=== PATIENT | female | born 1970 | race Caucasian/White ===

== ENCOUNTER 2023-04-13 11:01 | Outpatient (REF) | payer MEDICAID, SELFPAY ==
[2023-04-13 14:02] LABS: MANUAL DIFF FLAG NO
[2023-04-13 14:08] LABS: White Blood Count 6.2 X10*3/uL (4.8-10.8)
[2023-04-13 14:09] LABS: Basophils Absolute Auto 0.1 X10*3/uL (0.0-0.2); Eosinophils Absolute Auto 0.1 X10*3/uL (0.0-0.4); Eosinophils Percent Auto 1.8 % (0-4); Hematocrit 43.3 % (37.0-47.0); Hemoglobin 13.7 g/dl (12.0-16.0); Imm Gran Abs Auto 0.01 X10*3/uL (0.00-0.03); Imm Gran Pct Auto 0.2 % (0.0-0.4); Lymphocytes Percent Auto 31.3 % (20-40); Mean Corpuscular HGB Conc 31.6 g/dl (31.0-35.0); Mean Corpuscular Hemoglobin 27.2 pg (27.0-33.0); Mean Corpuscular Volume 86.1 fL (80.0-98.0); Mean Platelet Volume 10.3 fL (9.4-12.3); Monocytes Absolute Auto 0.5 X10*3/uL (0.1-1.2); Monocytes Percent Auto 8.5 % (2-11); Neutrophils Absolute Auto 3.6 x10*3/uL (2.0-8.3); Neutrophils Percent Auto 57.2 % (45-73); Platelet Count 326 X10*3/uL (160-400); Red Blood Count 5.03 X10*6/uL (4.20-5.50); Red Cell Distribution Width 13.6 % (11.0-16.0)
[2023-04-13 14:14] LABS: Appearance Urine Clear; Color Urine Yellow; Glucose Urine UA Negative (Negative); Leukocyte Esterase Urine Moderate (2+) (Negative); Nitrite Urine Negative (Negative); PH 5.5 (5.0-9.0); Specific Gravity - Urine 1.015 (1.005-1.025); UMIC TRIGGER UA YES; Urine Blood Negative (Negative); Urine Ketones Negative (Negative); Urine Protein Negative (Neg-Trace)
[2023-04-13 14:17] LABS: Estimated Average Glucose 100 mg/dL; Hemoglobin A1c % 5.1 % (<6.0)
[2023-04-13 14:21] LABS: Bacteria Urine 1+ (None Seen); Hyaline Casts Urine 0-2 /LPF (0-2)
[2023-04-13 16:24] LABS: Alanine Aminotransferase 24 U/L (0-31); Albumin Level 4.1 g/dL (3.5-5.0); Alkaline Phosphatase 95 U/L (39-117); Anion Gap 12 (12-20); Aspartate Amino Transferase 24 U/L (5-31); Bilirubin Direct 0.2 mg/dL (0.0-0.5); Bilirubin Total 0.7 mg/dL (0.0-1.0); Blood Urea Nitrogen 7 mg/dL (9-16); Calcium 9.5 mg/dL (8.4-10.2); Carbon Dioxide 26 mmol/L (22-29); Chloride 104 mmol/L (96-108); Cholesterol 227 mg/dL (<200); Estimated Glomerular Filt Rate > 60; Glucose Fasting 71 mg/dL (60-99); HDL Cholesterol 61 mg/dL (>40); LDL Cholesterol Calculated 144 mg/dL (<100); Potassium 4.3 mmol/L (3.3-5.1); Sodium 138 mmol/L (135-145); Total Protein 8.3 g/dL (6.5-8.0); Triglycerides 114 mg/dL (<150)
[2023-04-13 16:54] LABS: TSH reflex Free T4 1.75 uIU/mL (0.32-4.0); Vitamin D 25-OH Total 10.6 ng/mL (>30)
== END 2023-04-13 11:02 | disposition home or self-care (01) ==
LOC: HO.CHCLDS 11:01
PROVIDERS: Visit Provider Pediatrics
DX: Z12.31 Encounter for screening mammogram for malignant neoplasm of breast (principal); I10 Essential (primary) hypertension
CPT/HCPCS: 36415; 80048; 80061; 80076; 81001; 82306; 83036; 84443; 85025

== ENCOUNTER 2024-02-28 10:16 | Outpatient (REF) | payer MEDICAID, SELFPAY ==
[2024-02-28 14:46] LABS: MANUAL DIFF FLAG NO
[2024-02-28 14:56] LABS: Basophils Absolute Auto 0.1 X10*3/uL (0.0-0.2); Basophils Percent Auto 0.7 % (0-2); Eosinophils Absolute Auto 0.1 X10*3/uL (0.0-0.4); Eosinophils Percent Auto 0.8 % (0-4); Hematocrit 43.1 % (37.0-47.0); Hemoglobin 13.7 g/dl (12.0-16.0); Imm Gran Abs Auto 0.02 X10*3/uL (0.00-0.03); Imm Gran Pct Auto 0.3 % (0.0-0.4); Lymphocytes Absolute Auto 2.1 X10*3/uL (1.2-4.9); Lymphocytes Percent Auto 28.8 % (20-40); Mean Corpuscular HGB Conc 31.8 g/dl (31.0-35.0); Mean Corpuscular Hemoglobin 27.5 pg (27.0-33.0); Mean Corpuscular Volume 86.5 fL (80.0-98.0); Mean Platelet Volume 10.1 fL (9.4-12.3); Monocytes Absolute Auto 0.5 X10*3/uL (0.1-1.2); Monocytes Percent Auto 7.3 % (2-11); Neutrophils Absolute Auto 4.4 x10*3/uL (2.0-8.3); Neutrophils Percent Auto 62.1 % (45-73); Platelet Count 325 X10*3/uL (160-400); Red Blood Count 4.98 X10*6/uL (4.20-5.50); Red Cell Distribution Width 13.6 % (11.0-16.0); White Blood Count 7.1 X10*3/uL (4.8-10.8)
[2024-02-28 15:20] LABS: Alanine Aminotransferase 17 U/L (0-31); Albumin Level 4.1 g/dL (3.5-5.0); Alkaline Phosphatase 127 U/L (39-117); Anion Gap 11 (12-20); Aspartate Amino Transferase 18 U/L (5-31); Bilirubin Direct 0.3 mg/dL (0.0-0.5); Bilirubin Total 0.8 mg/dL (0.0-1.0); Blood Urea Nitrogen 9 mg/dL (9-16); Calcium 9.7 mg/dL (8.4-10.2); Carbon Dioxide 26 mmol/L (22-29); Chloride 106 mmol/L (96-108); Cholesterol 131 mg/dL (<200); Estimated Glomerular Filt Rate > 60; Glucose Fasting 86 mg/dL (60-99); HDL Cholesterol 45 mg/dL (>40); LDL Cholesterol Calculated 72 mg/dL (<100); Sodium 139 mmol/L (135-145); Total Protein 8.1 g/dL (6.5-8.0); Triglycerides 70 mg/dL (<150)
[2024-02-28 15:34] LABS: TSH reflex Free T4 1.76 uIU/mL (0.32-4.0); Vitamin D 25-OH Total 18.9 ng/mL (>30)
== END 2024-02-28 10:17 | disposition home or self-care (01) ==
LOC: HO.CHCLDS 10:16
PROVIDERS: Visit Provider Pediatrics
DX: I10 Essential (primary) hypertension (principal); I25.10 Atherosclerotic heart disease of native coronary artery without angina pectoris
CPT/HCPCS: 36415; 80048; 80061; 80076; 82306; 84443; 85025

== ENCOUNTER 2025-06-17 11:23 | Outpatient (REF) | payer MEDICAID, SELFPAY ==
--- OUTSIDE RECORDS SUMMARY | 2025-06-17 11:15 | XMS_ITS | Encounter Summary ---
Author Organization [employer] Address [address] [place] [address] [address] [place] [address] Care Team Providers Care Front End Manager Name Role Phone Nicolle Grant MD Primary Care Provider [phone] Reason for Referral * Imaging (Routine) - Closed Specialty Diagnoses / Procedures Referred By Contac t Referred To Contact Radiology Diagnoses Breast cancer screening by mammogram Procedures BI Mammogram Screening Tomosynthesis Bilateral Nicolle Grant MD [address] [place] [address] Phone: tel: fax: [facility] Referral ID Status Reason Start Date Expiration Date Visits Re quested Visits Authorized [id number] Closed 06/17/2025 06/17/2026 1 1 Encounter Details Date Type Department Care Team ([facility] st Contact Info) Description 06/17/2025 11:15 AM EDT Office Visit [facility] & PEDS [address] [place] [address] Nicolle Grant MD [address] [place] [address] Screening for colon cancer (Primary Dx); Generalized weakness; Breast cancer screening by mammogram; History of OCD (obsessive compulsive disorder); Primary hypertension Social History Tobacco Use Types Packs/Day Years Used Date Smoking Tobacco: Never Passive Smoke Exposure: Never Smokeless Tobacco: Never Alcohol Use Standard Drinks/Week Comments Never 0 (1 standard drink = 0.6 oz pur e alcohol) Alcohol Answer Date Recorded Frequency of Alcohol Consumption Not on file 05/17/2023 Average Number of Drinks Not on file 023 Frequency of Binge Drinking Not on file 04/21 Score 0 05/17/2023 Depression Answer Date Recorded Patient Health Questionnaire-9 Score 19 04/12/2023 Housing Stability Answer Date Recorded What is your housing situation today? I have nikhil yung 06/13/[address] you li ve. Do you have problems with any of the following? None of the above 06/13/2023 Food Insecurity Answer Date Recorded Within the past 12 months, y ou worried that your food would run out before you got money to buy more: Never True 06/13/2023 Within the past 12 months,th e food you bought just didn't last and you didn't have enough money to get more: Never True Transportation Answer Date Recorded In the past 12 months, has l ack of transportation kept you from medical appts, meetings, work or from getting things needed for daily living? No 06/13/2023 Utilities Answer Date Recorded In the past 12 months, has t he electric, gas, oil or water company threatened to shut off services in your home? No 06/13/2023 Depression Answer Date Recorded Patient Health Questionnaire-2 Score 0 05/17/2023 Comments Unknown Sex and Gender Information Value Date Recorded Sex Assigned at Female 01/22/2023 1:40 PM EDT Legal Sex Female 1:39 PM EDT Gender Identity Female 01/22/2023 1:40 PM EDT Sexual Orientation Straight 04/12/2023 2: 16 PM EDT documented as of this encounter Last Filed Vital Signs Vital Sign Reading Time Taken Comments Blood Pressure 136/90 06/17/2025 10:59 AM EDT Pulse 68 06/17/2025 10:59 AM EDT Temperature 36.6 C (97.9 F) 06/17/2025 10:59 AM EDT Respiratory Rate 20 06/17/2025 10:59 AM EDT Oxygen Saturation - - Inhaled Oxygen Concentration - - Weight 76.2 kg (168 lb) 06/17/2025 10:59 AM EDT Height - - Body Mass Index 32.03 05/01/2024 10:37 AM EDT documented in this encounter Progress Notes * Nicolle Grant MD - 06/17/2025 11:15 AM EDT Subjective Patient ID: Marlyn Alcantar is a 55 y.o. female who presents for multiple complaints. Marlyn is a 55 y/o female patient of mine here for c/o chronic fatigue.Had labs done 02/2024 whih werenormal except fr low Vit D.States sleeps a lot and still feels tired,denies snoring or headaches.Has severe anxiety and OCD tendencies.Was seeing Nikita ( beh therapist at [facility]) , not seeing him any mo re.Admits never started taking venlafaxine 37.5 Mg prescribed to her for this matter. Fatigue This is a new problem. The current episode started more than 1 month ago. The problem occurs constantly. The problem has been unchanged. Associated symptoms include fatigue and weakness. Pertinent negatives include no anorexia, congestion, coughing, fever, headaches, myalgias, numbness, sore throat, urinary symptoms, vertigo or visual change. Nothing aggravates the symptoms. She has tried rest for the symptoms. The treatment provided no relief. Review of Systems Constitutional: Positive for fatigue. Negative for fever. HENT: Negative for congestion and sore throat. Respiratory: Negative for cough. Gastrointestinal: Negative for anorexia. Musculoskeletal: Negative for myalgias. Neurological: Positive for weakness. Negative for vertigo, seizures, numbness and headaches. Psychiatric/Behavioral: Positive for behavioral problems and decreased concentration. Negative for sleep disturbance and suicidal ideas. The patient is nervous/anxious. Objective Vitals: 06/17/25 1059 BP: (!) 136/90 BP Location: Left arm Patient Position: Sitting BP Cuff Size: Adult Pulse: 68 Resp: 20 Temp: 97.9 ??F (36.6 ??C) TempSrc: Oral Weight: 168 lb (76.2 kg) Physical Exam Constitutional: General: She is not in acute distress. Appearance: Normal appearance. She is not ill-appearing. HENT: Head: Normocephalic. Right Ear: Tympanic membrane and ear canal normal. Left Ear: Tympanic membrane and ear canal normal. Nose: Nose normal. Mouth/Throat: Mouth: Mucous membranes are moist. Pharynx: No oropharyngeal exudate or posterior oropharyngeal erythema. Eyes: Extraocular Movements: Extraocular movements intact. Conjunctiva/sclera: Conjunctivae normal. Pupils: Pupils are equal, round, and reactive to light. Cardiovascular: Rate and Rhythm: Normal rate and regular rhythm. Pulses: Normal pulses. Heart sounds: Normal heart sounds. Pulmonary: Effort: Pulmonary effort is normal. No respiratory distress. Breath sounds: Normal breath sounds. Abdominal: Palpations: Abdomen is soft. Musculoskeletal: General: Normal range of motion. Cervical back: Normal range of motion. Right lower leg: No edema. Left lower leg: No edema. Skin: General: Skin is warm. Capillary Refill: Capillary refill takes less than 2 seconds. Comments: Peeling of skin of fingertips due to patient constantly taking skin off Neurological: General: No focal deficit present. Mental Status: She is alert and oriented to person, place, and time. Psychiatric: Attention and Perception: She does not perceive auditory or visual hallucinations. Mood and Affect: Mood is anxious. Speech: Speech normal. Behavior: Behavior normal. Behavior is not aggressive or withdrawn. Behavior is cooperative. Thought Content: Thought content normal. Cognition and Memory: Cognition normal. Judgment: Judgment normal. Assessment/Plan Diagnoses and all orders for this visit: Screening for colon cancer Comments: Agrees to do cologuard. Declines colonoscopy referral. Orders: - Basic Metabolic Panel, Fasting; Future - CBC auto differential; Future - Cologuard?? colon cancer screening - TSH W/Reflex to FT4; Future - Vitamin D, 25-Hydroxy, Total, Immunoassay; Future - Vitamin B12/Folate, Serum Panel; Future - Hepatic Function Panel; Future - Urinalysis with reflex microscopic; Future Generalized weakness Comments: Has Severe untreated anxiety.Check labs today, eat properly,hydrate properly.F/U with me x results given. Orders: - Basic Metabolic Panel, Fasting; Future - CBC auto differential; Future - Cologuard?? colon cancer screening - TSH W/Reflex to FT4; Future - Vitamin D, 25-Hydroxy, Total, Immunoassay; Future - Vitamin B12/Folate, Serum Panel; Future - Hepatic Function Panel; Future - Urinalysis with reflex microscopic; Future Breast cancer screening by mammogram Comments: Overdue,new order sent,importance discussed. Orders: - BI Mammogram Screening Tomosynthesis Bilateral; Future History of OCD (obsessive compulsive disorder) Comments: Start venlafaxine as previously prescribed,close f/u with me given.Referred to outpatient [facility] in 03/2025. Primary hypertension Comments: BP stable on current meds,hasnt taken meds yet this am,advised to take them rosa.Reassess next visit. Other orders - venlafaxine XR (Effexor XR) 37.5 MG 24 hr capsule; Take 1 capsule (37.5 mg) by mouth Once per day. Future Appointments Date Time Provider Department Center 06/17/2025 11:15 AM Nicolle Grant MD [facility] This note was drafted using Ambient (AI) technology. The patient/patient's guardian has been informed and has consented to the use of this technology: Yes documented in this encounter Plan of Treatment Upcoming Encounters Date Type Department Care Team ([facility] st Contact Info) Description 07/22/2025 10:15 AM EST Office Visit [facility] MED & PEDS [address] [place] [address] Nicolle Grant MD [address] [place] [address] Pending Results Name Type Priority Associated Diagnoses Date /Time Basic Metabolic Panel, Fasting Lab Routine Screening for colon cancer Generalized weakness 06/17/2025 11:25 AM EDT Hepatic Function Panel Lab Routine Screening for colon cancer Generalized weakness 06/17/2025 11:25 AM EDT Scheduled Orders Name Type Priority Associated Diagnoses Orde r Schedule Cologuard colon cancer screening Lab Routine Screening for colon cancer Generalized weakness Ordered: 06/17/2025 TSH W/Reflex to FT4 Lab Routine Screening for colon cancer Generalized weakness Expected: 06/17/2025 (Approximate), Expires: 06/17/2026 Vitamin D, 25-Hydroxy, Total, Immunoassay Lab Routine Screening for colon cancer Generalized weakness Expected: 06/17/2025 (Approximate), Expires: 06/17/2026 Vitamin B12/Folate, Serum Panel Lab Routine Screening for colon cancer Generalized weakness Expected: 06/17/2025, Expires: 06/17/2026 Urinalysis with reflex microscopic Lab Routine Screening for colon cancer Generalized weakness Expected: 06/17/2025, Expires: 06/17/2026 BI Mammogram Screening Tomosynthesis Bilateral Imaging Routine Breast cancer screening by mammogram Expected: 06/17/2025, Expires: 08/17/2026 documented as of this encounter Procedures Procedure Name Priority Date/Time Associated Diagnosis Comments BASIC METABOLIC PANEL, FASTING Routine 06/17/2025 11:25 AM EDT Screening for colon cancer Generalized weakness CBC WITH AUTO DIFFERENTIAL Routine 06/17/2025 11:25 AM EDT Screening for colon cancer Generalized weakness HEPATIC FUNCTION PANEL Routine 06/17/2025 11:25 AM EDT Screening for colon cancer Generalized weakness documented in this encounter Results * CBC auto differential (06/17/2025 11:25 AM EDT) White Blood Count 6.4 4.8 - 10.8 X10*3/uL [facility] Red Blood Count 4.85 4.20 - 5.50 X10*6/uL [facility] Hemoglobin 13.4 12.0 - 16.0 g/dl [facility] Hematocrit 42.5 37.0 - 47.0 % [facility] Mean Corpuscular Volume 87.6 80.0 - 98.0 fL [facility] Mean Corpuscular Hemoglobin 27.6 27.0 - 33.0 pg [facility] Mean Corpuscular HGB Conc 31.5 31.0 - 35.0 g/dl [facility] Red Cell Distribution Width 13.9 11.0 - 16.0 % [facility] Platelet Count 330 160 - 400 X10*3/uL [facility] Mean Platelet Volume 10.1 9.4 - 12.3 fL [facility] Neutrophils Percent Auto 62.0 45 - 73 % [facility] Imm Gran Pct Auto 0.2 0.0 - 0.4 % [facility] Lymphocytes Percent Auto 27.0 20 - 40 % [facility] Monocytes Percent Auto 9.1 2 - 11 % [facility] Eosinophils Percent Auto 0.9 0 - 4 % [facility] Basophils Percent Auto 0.8 0 - 2 % [facility] NRBC Pct Auto 0.0 0.0 - 0.2 /100WBC [facility] Neutrophils Absolute Auto 4.0 2.0 - 8.3 x10*3/uL [facility] Imm Gran Abs Auto 0.01 0.00 - 0.03 X10*3/uL [facility] Lymphocytes Absolute Auto 1.7 1.2 - 4.9 X10*3/uL [facility] Monocytes Absolute Auto 0.6 0.1 - 1.2 X10*3/uL [facility] Eosinophils Absolute Auto 0.1 0.0 - 0.4 X10*3/uL [facility] Basophils Absolute Auto 0.1 0.0 - 0.2 X10*3/uL [facility] NRBC Abs Auto 0.000 0.0 - 0.012 X10*3/uL [facility] Blood Venous blood specimen / Unknown 06/17/2025 11:25 AM EDT 06/17/2025 1:55 PM EDT us Nicolle Grant MD LAB BLOOD ORDERABLES Final Re sult [facility] [address] [place] [address] [phone] documented in this encounter Visit Diagnoses Diagnosis Screening for colon cancer- Primary Special screening for malignant neoplasms, colon Generalized weakness Breast cancer screening by mammogram History of OCD (obsessive compulsive disorder) Primary hypertension Unspecified essential hypertension documented in this encounter Additional Health Concerns Assessment Noted Time PHQ-9 Depression Total Score: 19 023 10:12 AM EDT documented as of this encounter Care Teams Front End Manager Relationship Specialty Start Date End Date Nicolle Grant MD [address] [place] [id number] PCP - General Internal Medicine 04/12/23 documented as of this encounter
[2025-06-17 14:06] LABS: MANUAL DIFF FLAG NO
[2025-06-17 14:08] LABS: Hematocrit 42.5 % (37.0-47.0); Hemoglobin 13.4 g/dl (12.0-16.0); Imm Gran Abs Auto 0.01 X10*3/uL (0.00-0.03); Imm Gran Pct Auto 0.2 % (0.0-0.4); Lymphocytes Absolute Auto 1.7 X10*3/uL (1.2-4.9); Mean Corpuscular HGB Conc 31.5 g/dl (31.0-35.0); Mean Corpuscular Hemoglobin 27.6 pg (27.0-33.0); Mean Corpuscular Volume 87.6 fL (80.0-98.0); NRBC Abs Auto 0.000 X10*3/uL (0.0-0.012); NRBC Pct Auto 0.0 /100WBC (0.0-0.2); Platelet Count 330 X10*3/uL (160-400); Red Blood Count 4.85 X10*6/uL (4.20-5.50); White Blood Count 6.4 X10*3/uL (4.8-10.8)
[2025-06-17 14:09] LABS: Appearance Urine Clear; Glucose Urine UA Negative (Negative); PH 5.5 (5.0-9.0); Specific Gravity - Urine 1.025 (1.005-1.025); UMIC TRIGGER UACC YES
[2025-06-17 14:12] LABS: UACC Culture Trigger YES
[2025-06-17 14:29] LABS: Alanine Aminotransferase 27 U/L (0-31); Albumin Level 4.4 g/dL (3.5-5.0); Alkaline Phosphatase 107 U/L (39-117); Anion Gap 11 (12-20); Aspartate Amino Transferase 32 U/L (5-31); Blood Urea Nitrogen 8 mg/dL (9-16); Calcium 9.3 mg/dL (8.4-10.2); Carbon Dioxide 27 mmol/L (22-29); Chloride 105 mmol/L (96-108); Estimated Glomerular Filt Rate > 60; Potassium 4.1 mmol/L (3.3-5.1); Sodium 139 mmol/L (135-145); Total Protein 8.1 g/dL (6.5-8.0)
--- OUTSIDE RECORDS SUMMARY | 2025-06-17 14:38 | XMS_ITS | Encounter Summary ---
Author Organization [employer] Address [address] [place] [address] [address] [address] Care Team Providers Care Nuclear Operations Specialist Name Role Phone Nicolle Grant MD Primary Care Provider [phone] Reason for Visit * Reason Onset Date Comments Referral 04/30/2023 Data Operations Director Encounter Details Date Type Department Care Team ([facility] st Contact Info) Description 04/30/[address] [facility] MED & PEDS [address] [place], [place] [phone] Nicolle Grant MD [address] [place] [address] Referral (Data Operations Director ) Social History Tobacco Use Types Packs/Day Years Used Date Smoking Tobacco: Never Passive Smoke Exposure: Never Smokeless Tobacco: Never Alcohol Use Standard Drinks/Week Comments Never 0 (1 standard drink = 0.6 oz pur e alcohol) Depression Answer Date Recorded Patient Health Questionnaire-9 Score 19 04/12/2023 Comments Unknown Sex and Gender Information Value Date Recorded Sex Assigned at Female 01/22/2023 1:40 PM EDT Legal Sex Female 1:39 PM EDT Gender Identity Female 01/22/2023 1:40 PM EDT Sexual Orientation Straight 04/12/2023 2: 16 PM EDT documented as of this encounter Miscellaneous Notes * Telephone Encounter - Davi Lamas - 05/07/2023 9:26 AM EDT Tc from pt requesting status on referral. * Telephone Encounter - Nava Mcdaniel - 04/30/2023 11:45 AM EDT Tc from patient requesting a referral for a magneto repairer instead of a longwall shearer operator. documented in this encounter Plan of Treatment Upcoming Encounters Date Type Department Care Team ([facility] st Contact Info) Description 07/22/2025 10:15 AM EST Office Visit [facility] MED & PEDS [address] [place] [address] Nicolle Grant MD [address] [place] [address] documented as of this encounter Visit Diagnoses Not on filedocumented in this encounter Additional Health Concerns Assessment Noted Time PHQ-9 Depression Total Score: 19 023 10:12 AM EDT documented as of this encounter Care Teams Nuclear Operations Specialist Relationship Specialty Start Date End Date Nicolle Grant MD [address] [place] [address] PCP - General Internal Medicine 04/12/23 documented as of this encounter
--- OUTSIDE RECORDS SUMMARY | 2025-06-17 14:38 | XMS_ITS | Encounter Summary ---
Author Organization [employer] Address [address] [place] [address] [address] [place] [address] Care Team Providers Care Teradata Developer Name Role Phone Nicolle Grant MD Primary Care Provider [phone] Reason for Visit * Reason Onset Date Comments Appointment Request 01/21/2024 Encounter Details Date Type Department Care Team ([facility] Contact Info) Description 01/21/2024 Telephone [facility] MED & PEDS [address] [place], [place] [phone] Nicolle Grant MD [address] [place] [address] Appointment Request Social History Tobacco Use Types Packs/Day Years [...] your housing situation today? I have nikhil barragan 06/13/[address] you li [...] encounter Miscellaneous Notes * Telephone Encounter - Patricia Victoria - 01/21/2024 11:34 AM EDT Tc from pt requesting an appointment with PCP. States was advised by Zesty to follow up with provider today for heart condition. Wood Heel Cementer advised pt provider is booked. Wood Heel Cementer scheduled pt for 02/27 at 9 AM but pt would like a sooner appointment. Pt is currently asymptomatic. Please contact pt at [phone] documented in this encounter Plan of Treatment Upcoming Encounters Date Type Department Care Team ([facility] st Contact Info) Description 07/22/2025 10:15 AM EST Office Visit [facility] MED & PEDS [address] [place] [address] Nicolle Grant MD [address] [place] [address] documented as of this encounter Visit Diagnoses Not on filedocumented in this encounter Additional Health Concerns Assessment Noted Time PHQ-9 Depression Total Score: 19 023 10:12 AM EDT documented as of this encounter Care Teams Teradata Developer Relationship Specialty Start Date End Date Nicolle Grant MD [address] [place] [id number] PCP - General Internal Medicine 04/12/23 documented as of this encounter
--- OUTSIDE RECORDS SUMMARY | 2025-06-17 14:38 | XMS_ITS | Encounter Summary ---
Author Organization [employer] Address [address] [place] [id number] Care Team Providers Care Cooker Pie Filling Name Role Phone Nicolle Grant MD Primary Care Provider [phone] Encounter Details Date Type Department Care Team ([facility] Contact Info) Description 05/07/2023 Orders Only [facility] MED & PEDS [address] [place] [address] Nicolle Grant MD [address] [place] [address] Primary hypertension (Primary Dx) Social History Tobacco Use Types Packs/Day Years [...] PM EDT documented as of this encounter Plan of Treatment Upcoming Encounters Date Type Department Care Team ([facility] Contact Info) Description 07/22/2025 10:15 AM EST Office Visit [facility] MED [facility] PED[facility] [address] [place] [address] Nicolle Grant MD [address] [place] [address] documented as of this encounter Visit Diagnoses Diagnosis Primary hypertension- Primary Unspecified essential hypertension documented in this encounter Additional Health Concerns Assessment Noted Time PHQ-9 Depression Total Score: 19 023 10:12 AM EDT documented as of this encounter Care Teams Cooker Pie Filling Relationship Specialty Start Date End Date Nicolle Grant MD [address] [place] [address] PCP - General Internal Medicine 04/12/23 documented as of this encounter
--- OUTSIDE RECORDS SUMMARY | 2025-06-17 14:38 | XMS_ITS | Data Portability ---
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 Low sodium diet and weight loss were discussed. F/u as scheduled in January with BP log. . [id number] MALU Martinez Main Office [address] [place] [address] 02/08/2017 15:13:35 02/08/2017 15:59:32 Essential hypertension 17823133 I10 DAHS diet, decrease sodium adn caffeine intake, will prescribe just lisinopril as she is feeling weakness and dizziness when taking med, she will take med at night, hydrate, eat well balanced meals, diet and exercise discussed. F/U in 1 month for recheck. Hyperlipidemia 35348942 E78.5 [id number] MALU Martinez Main Office [address] [place] [address] 04/03/2017 09:16:28 04/03/2017 11:07:42 Adult health examination 945618222 Z00.00 Pap done today, she will call for mammo, declined flu/ TDAP vaccines Gynecologi c examination 20985191 Z01.411 Pap and breast exam done, she will call to schedule mammo Immunization refused [id number] Z28.21 Screening for malignant neoplasm of breast 989479488 Z12.39 Exposure t o sexually transmissible disorder 434585601 Z11.3 Anemia 636959435 D64.9 due to have iron testing and will repeat CBC Essential hypertension 18326510 I10 Stopped lisinopril 2 weeks after starting it, feels good, BP normal today, stay off med. 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 She has not been taking it and wonders whether she could get iron infusions. She may not be a candidate for this but will recheck labs. Encouraged patient to practice swallowing pills or bring the liquid back to the pharmacy to have it flavored. Essential hypertension 38153077 I10 She is taking lisinopril as needed when her BP is high. I explained top her that is not appropriat e and it could put her at increased risk for stroke or heart attack to let her BP get so high. She should be taking lisinopril daily 5mg to start and she may add 5mg on days she finds her BP is still high. reviewed dietary changes, cutting back on soda which she drinks multiple times per day, etc. She states is not a diet type person . [id number] MALU Martinez Main Office [address] [facility] [address] [place] [address] 05/23/2018 08:48:17 05/23/2018 10:04:26 Needs influenza immunization 939953081 Z23 Acute non- ST segment elevation myocardial infarction 375054793 I21.4 Follow up with cardiology on 06/04/18 at [facility] 3300.. EF 35% based on echo in hospital. Pure hypercholesterolemia 924061240 E78.00 patient is on lipitor 80mg. she is having difficulty swallowing the pill. Is cutting into 4 pieces but cannot stomach it and states she still has a hard time swallowing it. Will rx 2-40mg pills and do PA if needed. she may need to discuss changing med with cardiology .. Essential hypertension 37258237 I10 Patient is now taking lisinopril and metoprolol , trying to eat better, will be doing cardiac rehab. History of cardiac catheterization [id number] 9100 Z98.890 s/p cardiac cath 05/17 with stent placed to LAD. [id number] Eliceo Alvraez MD Main Office [address] [facility] [address] [place] [address] 11/21/2018 10:13:28 11/21/2018 11:00:45 Essential hypertension 00297694 I10 followed by cardiology Acute non- ST segment elevation myocardial infarction 060835603 I21.4 followed by cardiology . Cough 00915057 R05 will check XR as sx x 2 months. Upper resp iratory infection 34982681 J06.9 sx x 2 months will tx for possible secondary bacterial infection with zpak, hydration, rest. [id number] Moshe Brady MD Main Office [address] [facility] [address] [facility] [place] [address] 09/25/2019 12:43:52 09/25/2019 13:32:04 Cellulitis 099728276 L03.90 warm compresses , recheck 2 week, likely superficia l infected cyst/pimpl e. Will need routine mammogram to be done when this heals, pt agrees. [id number] Eliceo Alvarez MD Main Office [address] [place] [address] [address] [facility] [place] [address] 10/16/2019 10:12:32 10/16/2019 11:12:31 Cellulitis of breast 86718520 N61.0 Lump still present however no evidence of active infection. continue nromal hygeine routines and schedule mammo as she is overdue. Screening for malignant neoplasm of breast 699240243 Z12.39 [id number] Eliceo Alvarez MD [address] [facility] [place] [address] 10/06/2021 10:15:03 10/06/2021 16:23:06 Coronary arteriosclerosis 87994965 I25.10 Had a NSTEMI in 2018 with a cath and a stent placement. Last seen by cardiology 2 years ago. History of non-ST segment elevation myocardial infarction 534474540 I25.2 in 2018 with a stent placement Fatigue 36641321 R53.83 No clear etiology for this. I doubt if this is coming from her heart disease. Possibly from anxiety/de pression but she denies that this is a problem. She is looking for a note to welfare saying that she is unable to work because of heart disease. I will send a message to her cardiologi to get his opinion. [id number] Rob Mann MD [facility] [address] [address] 06/23/2022 09:56:30 06/26/2022 11:21:45 COVID-19 [id number] U07.1 Health Concerns Section Related Observation LastModified by Organization Detai ls LastModified Time None Recorded Concern Status LastModified by Organization Details LastModified Time None Recorded Advance Directives Directive N: declines Payers Insurance Date Sequence Insurance Name Policy Number Policy Pham Covered Member ID Pham Member ID Guarantor Name 11/20/2016 [employer] Jez Nicholsez 06/23/2022 1 [place] [facility] Marlyn Pooletanez [id number] Marlyn Pimentel Ortiz Notes Date Note Type Note Provider Name and Address Organization Details Recorded Time 11/21/2018 text/html Generic HPI TemplateReported by Patientpresents with c/o flu like sx 2 months ago and has had a cough x 2 months, never got better. cough is dry and comes in fits and sometimes she spits up water/ feels like she will throw up. No nasal discharge, no fever, no throat or ear pain. She is s/p ME in may, she saw cardiology in august and was told he heard water in her lungs, she would like to be checked. MALU Martinez [facility] [address], [place], [address], [facility] 11/21/2018 11:29:02 09/25/2019 text/html Pt here for evaluation of lump/pimple on the left breast noted a few days ago. Now more red and sore Ca suggs, [facility] 09/26/2019 00:30:10 10/16/2019 text/html Generic HPI TemplateReported by PatientPt here for evaluation of lump/pimple on the left breast noted a few days ago. Now more red and sore Presents for f/u breast cellulitis, took keflex x 7 days, now has brown discoloration where the redness was. Still has the lump and not much has changed. no pain, no discharge. MALU Martinez [address] [address], [place], [address], [facility] 10/16/2019 15:17:37 10/06/2021 text/html ROS as noted in the HPI Since her ME in 2018 she is now feeling weak all the time and has to lay down because she feels like she is going to pass out. Denies and episodes of syncope. Feels anxiety and stress when goes shopping and often times when she goes out to other activities. She does not feel like she is depressed or anxious and does not want treatment for this. She has been receiving welfare since her son was an because she had to care for him multimedia instructional designer since he had multiple medical problems. Now that he is 18 she no longer qualifies for welfare and is now looking to receive it based on her chronic fatigue. She has not seen cardiology for more than 2 years. She had an ECHO done then which was normal. She has a f/u with Dr Larson on 10/11/21. Eliceo Alvarez MD [address] [address], [place], [address], [facility] 10/06/2021 14:41:09 06/23/2022 text/html ROS as noted in the HPI TH visit during COVID-19 pandemic. Notes symptoms for 1d of facial pain, nausea, headaches, nasal congestion. Tactile temp, shaking chills. No cough, SOB. Notes some mild diarrhea. Had neg COVID test yesterday before symptoms got worse. Notes that son tested positive yesterday. Notes some improvement in headaches with Tylenol. Risk factors include CAD, HTN, obesity. Rob Mann MD [address] [address], [place], [address], [facility] 06/25/2022 18:08:33 OBGyn Episode No OBEpisode recorded.
--- OUTSIDE RECORDS SUMMARY | 2025-06-17 14:38 | XMS_ITS | Clinical Summary ---
Author Organization [facility] ity Address [address] [place] [address] Care Team Providers Care Oil Burner Mechanic Name Role Phone Unavailable Primary Care Provider Unavailabl e Social History Tobacco Use Types Packs/Day Years Used Date Smoking Tobacco: Never Assessed Comments Unknown Sex and Gender Information Value Date Recorded Sex Assigned at Not on file Legal Sex Female 5:12 PM EST Gender Identity Not on file Sexual Orientation Not on file Plan of Treatment Health Maintenance Due Date Last Done Comments Breast Cancer Screening 1969 DTaP,Tdap,and Td Vaccines (1 - Tdap) 1988 Hepatitis B Vaccines (1 of 3 - 19+ 3-dose series) 1988 Cervical Cancer Screening: P ap Smear 1990 Pneumococcal Vaccine: 50+ Ye ars (1 of 1 - PCV) 2019 Zoster Vaccines (1 of 2) 2019 Depression Screening 08/20/2024 COVID-19 Vaccine ( - 2023-2 5 season) 2025 Influenza Vaccine (#1) 2025 RSV Immunization Adult Patie nts (1 - 1-dose 75+ series) 2044 HIB Vaccines Aged Out No longer eligi ble based on patient's age to complete this topic HPV Vaccines Aged Out No longer eligi ble based on patient's age to complete this topic Hepatitis A Vaccines Aged Out No long er eligible based on patient's age to complete this topic IPV Vaccines Aged Out No longer eligi ble based on patient's age to complete this topic MMR Vaccines Aged Out No longer eligi ble based on patient's age to complete this topic Meningococcal ACWY Vaccine Aged Out N o longer eligible based on patient's age to complete this topic Meningococcal B Vaccine Aged Out No l onger eligible based on patient's age to complete this topic RSV Immunization Patients Un johana 20 months Aged Out No longer eligible b ased on patient's age to complete this topic Varicella Vaccines Aged Out No longer eligible based on patient's age to complete this topic
--- OUTSIDE RECORDS SUMMARY | 2025-06-17 14:38 | XMS_ITS | Encounter Summary ---
Author Organization [employer] Address [address] [facility] 7 [place] [address] Care Team Providers Care Hardware Engineering Manager Name Role Phone Nicolle Grant MD Primary Care Provider [phone] Reason for Visit * Reason Onset Date Comments Call Back Request 03/27/2024 Encounter Details Date Type Department Care Team ([facility] Contact Info) Description 03/27/2024 Telephone [facility] [address] [place] [address] Nicolle Grant MD [address] [place] [address] Call Back Request Social History Tobacco Use Types Packs/Day [...] encounter Miscellaneous Notes * Telephone Encounter - Agustín Arnold - 03/27/2024 2:08 PM EDT Tc from patient requesting a call back states has some questions to ask no further information provided documented in this encounter Plan of Treatment Upcoming Encounters Date Type Department Care Team ([facility] st Contact Info) Description 07/22/2025 10:15 AM EST Office Visit [facility] [address] [place] [address] Nicolle Grant MD [address] [place] [address] documented as of this encounter Visit Diagnoses Not on filedocumented in this encounter Additional Health Concerns Assessment Noted Time PHQ-9 Depression Total Score: 19 023 10:12 AM EDT documented as of this encounter Care Teams Hardware Engineering Manager Relationship Specialty Start Date End Date Nicolle Grant MD [address] [place] [address] PCP - General Internal Medicine 04/12/23 documented as of this encounter
--- OUTSIDE RECORDS SUMMARY | 2025-06-17 14:39 | XMS_ITS | Encounter Summary ---
Author Organization [employer] Address [address] [facility] 7 [place] [address] Care Team Providers Care Director Packaging Name Role Phone Nicolle Grant MD Primary Care Provider [phone] Encounter Details Date Type Department Care Team ([facility] Contact Info) Description 06/17/2025 Orders Only [facility] [address] [place], [place] [id number] Nicolle Grant MD [address] [place] [address] Social History Tobacco Use Types Packs/Day Years [...] Upcoming Encounters Date Type Department Care Team ([facility] st Contact Info) Description 07/22/2025 10:15 AM EST Office Visit [facility] [address] [place] [address] Nicolle Grant MD [address] [place] [address] documented as of this encounter Procedures Procedure Name Priority Date/Time Associated Diagnosis Comments URINALYSIS, COMPLETE, WITH REFLEX TO CULTURE Routine 06/17/2025 11:30 AM EDT documented in this encounter Results * (ABNORMAL) Urinalysis, Complete, with Reflex to Culture (06/17/2025 11:30 AM EDT) Color Urine Dark Yellow [facility] Appearance Urine Clear [facility] PH 5.5 5.0 - 9.0 [facility] Glucose Urine UA Negative Negative mg/dL [facility] Urine Blood Negative Negative [facility] Specific [place] - Urine 1.025 1.005 - 1.025 [facility] Urine Protein Trace Neg-Trace mg/dL [facility] Urine Ketones Trace Negative mg/dL [facility] Nitrite Urine Negative Negative [facility] Leukocyte Esterase Urine Moderate (2+)(A) Negative [facility] RBC Urine 0-2 0 - 2 /HPF [facility] Urine WBC 21-50(A) 0 - 5 /HPF [facility] Urine Squamous Epithelial Cell 6-10 0 - 2 /HPF [facility] Urine Bacteria 1+ None Seen [facility] Hyaline Casts, Urine 0-2 0 - 2 /LPF [facility] 06/17/2025 11:3 0 AM EDT 06/17/2025 1:57 PM EDT Narrative [facility] - 06/17/2025 2:14 PM EDT [id number], Clean Catch us Nicolle Grant MD LAB URINE ORDERABLES Final Re sult [facility] [address] [place] [address] [phone] documented in this encounter Visit Diagnoses Not on filedocumented in this encounter Additional Health Concerns Assessment Noted Time PHQ-9 Depression Total Score: 19 023 10:12 AM EDT documented as of this encounter Care Teams Director Packaging Relationship Specialty Start Date End Date Nicolle Grant MD [address] [place] [address] PCP - General Internal Medicine 04/12/23 documented as of this encounter
--- OUTSIDE RECORDS SUMMARY | 2025-06-17 14:39 | XMS_ITS | Encounter Summary ---
Author Organization [employer] Address [address] [facility] 7 [place] [address] Care Team Providers Care Risk Engineer Name Role Phone Nicolle Grant MD Primary Care Provider [phone] Encounter Details Date Type Department Care Team (Latest Contact Info) Description 06/17/2025 Travel Social History Tobacco Use Types Packs/Day Years [...] Upcoming Encounters Date Type Department Care Team (Late st Contact Info) Description 07/22/2025 10:15 AM EST Office Visit [facility] [address] [place] [address] Nicolle Grant MD [address] [place] [address] documented as of this encounter Visit Diagnoses Not on filedocumented in this encounter Additional Health Concerns Assessment Noted Time PHQ-9 Depression Total Score: 19 023 10:12 AM EDT documented as of this encounter Care Teams Risk Engineer Relationship Specialty Start Date End Date Nicolle Grant MD [address] [place] [address] PCP - General Internal Medicine 04/12/23 documented as of this encounter
--- OUTSIDE RECORDS SUMMARY | 2025-06-17 14:39 | XMS_ITS | Clinical Summary ---
Author Organization [employer] Address [address] [facility] 7 [place] [address] Care Team Providers Care [place] Machine Operator Name Role Phone Nicolle Grant MD Primary Care Provider [phone] Allergies Active Allergy Reactions Criticality Noted Date Comments Morphine 02/28/2024 Medications * This document contains information received from the source organization and may not represent a complete record from that organization. clopidogrel (Plavix) 75 MG tablet Take 1 tablet (75 mg) by mouth in the morning. 90 tablet 1 08/30/19 24 Active ergocalciferol (Vitamin D2) 1.25 MG (37251 UT) capsule Take 1 capsule (1.25 mg) by mouth 1 (one) time per week. 15 capsule 02/28/20 24 Active ergocalciferol (Vitamin D2) 1.25 MG (25364 UT) capsule Take 1 capsule (1.25 mg) by mouth 1 (one) time per week. 12 capsule 05/01/20 24 Active spironolactone (Aldactone) 25 MG tablet TAKE 1 TABLET BY MOUTH EVERY DAY IN THE MORNING 90 tablet 3 08/19/20 24 Active metoprolol succinate XL (Toprol-XL) 50 MG 24 hr tablet TAKE 1 TABLET BY MOUTH EVERY DAY IN THE MORNING 90 tablet 3 08/19/20 24 Active atorvastatin (Lipitor) 80 MG tablet TAKE 1 TABLET (80 MG) BY MOUTH IN THE MORNING 90 tablet 3 08/19/20 24 Active amLODIPine (Norvasc) 2.5 MG tablet TAKE 1 TABLET BY MOUTH IN THE MORNING 90 tablet 3 08/19/20 24 Active Aspirin Low Dose 81 MG chewable tablet CHEW 1 TABLET (81 MG) IN THE MORNING 90 tablet 3 09/25/19 25 Active nitroglycerin (Nitrostat) 0.[address] 1 TAB SUB LINGUALLY NEEDED FOR CHEST PAIN, CAN REPEAT IN 5 MINUTES IF NEEDED ONLY 100 tablet 1 09/29/19 25 Active venlafaxine XR (Effexor XR) 37.5 MG 24 hr capsule Take 1 capsule (37.5 mg) by mouth Once per day. 30 capsule 3 06/17/20 25 Active venlafaxine XR (Effexor XR) 37.5 MG 24 hr capsule TAKE 1 CAPSULE BY MOUTH ONCE PER DAY. DO NOT CRUSH OR CHEW. 30 capsule 3 05/07/20 25 025 Discontinued(Re order (will not trigger notification to Pharmacy)) Active Problems Problem Noted Date Diagnosed Date Class 1 obesity 02/28/2024 History of OCD (obsessive compulsive disorder) 0 02/28/2024 Coronary artery disease invo lving [place] heart without angina pectoris 04/12/2023 Primary hypertension 04/12/2023 Anxiety 04/12/2023 Encounters Date Type Department Care Team Description 06/17/2025 11:15 AM EDT Office Visit [facility] [address] [place] [address] Nicolle Grant MD Screening for colon cancer (Primary Dx); Generalized weakness; Breast cancer screening by mammogram; History of OCD (obsessive compulsive disorder); Primary hypertension 06/17/2025 Orders Only [facility] [address] [place] [address] Nicolle Grant MD 06/17/2025 Travel 06/09/[address] [facility] [address] [place] [address] Nicolle Grant MD triage 05/07/2025 Refill [facility] [address] [place] [address] Nicolle Grant MD from Last 3 Months Family History Medical History Relation Name Comments Heart attack Brother Heart attack Father No Known Problems Mother Relation Name Status Comments Brother Alive Father Mother Alive Social History Tobacco Use Types Packs/Day Years Used Date Smoking Tobacco: Never Passive Smoke Exposure: Never Smokeless Tobacco: Never Tobacco Cessation:Counseling Given: Not Answered Alcohol Use Standard Drinks/Week Comments Never 0 [...] Orientation Straight 04/12/2023 2: 16 PM EDT Last Filed Vital Signs Vital Sign Reading Time Taken Comments Blood Pressure 136/90 06/17/2025 10:59 AM EDT Pulse 68 06/17/2025 10:59 AM EDT Temperature 36.6 C (97.9 F) 06/17/2025 10:59 AM EDT Respiratory Rate 20 06/17/2025 10:59 AM EDT Oxygen Saturation 97% 05/01/2024 10:37 AM EDT Inhaled Oxygen Concentration - - Weight 76.2 kg (168 lb) 06/17/2025 10:59 AM EDT Height 154.3 cm (5' 0.73 ) 05/01/2024 10:37 AM E DT Body Mass Index 32.03 05/01/2024 10:37 AM EDT Plan of Treatment Upcoming Encounters Date Type Department Care Team (Late st Contact Info) Description 07/22/2025 10:15 AM EST Office Visit [facility] [address] [place] [address] Nicolle Grant MD [address] [place] [address] Health Maintenance Due Date Last Done Comments CT Colonography 1969 Colonoscopy 1969 Colorectal Cancer Screening 1969 FIT DNA/Cologuard 1969 FIT 1969 FOBT 1969 HIV Screening 1969 Sigmoidoscopy 1969 Disability Screening 1969 Alcohol/Substance Use Screening 1981 Hepatitis C Screening 1987 DTaP/Tdap/Td Vaccines (1 - Tdap) 1988 Hepatitis B Vaccines (1 of 3 - 19+ 3-dose series) 1988 Pneumococcal Vaccine: 50+ Years (1 of 2 - PCV) 1988 Pap Smear 1990 Cervical Cancer Screening 1999 HPV/Cotest 1999 Zoster Vaccines (1 of 2) 2019 Depression Monitoring 11/15/2023 05/17/2023 , 04/12/2023 SDOH Screening 04/12/2024 04/12/2023 COVID-19 Vaccine (3 - 2024-2 6 season) 2025 03/07/2021, 02/14/2021 Influenza Vaccine (#1) 2025 Mammogram 06/13/2025 06/13/2023 Tobacco Screening 06/17/2026 06/17/2025 Lipid Panel 02/27/2029 02/28/2024, 04/13/2023 RSV Patients and Patients Aged 60 years or older (1 - 1-dose 75+ series) 2044 HIB [...] patient's age to complete this topic Meningococcal Vaccine Aged Out No ahsan rajendra eligible based on patient's age to complete this topic RSV under 20 months Aged Out No longe r eligible based on patient's age to complete this topic Rotavirus Vaccines Aged Out No longer eligible based on patient's age to complete this topic Procedures Procedure Name Priority Date/Time Associated Diagnosis Comments URINALYSIS, COMPLETE, WITH REFLEX TO CULTURE Routine 06/17/2025 11:30 AM EDT HEPATIC FUNCTION PANEL Routine 06/17/2025 11:25 AM EDT Screening for colon cancer Generalized weakness CBC WITH AUTO DIFFERENTIAL Routine 06/17/2025 11:25 AM EDT Screening for colon cancer Generalized weakness BASIC METABOLIC PANEL, FASTING Routine 06/17/2025 11:25 AM EDT Screening for colon cancer Generalized weakness LIPID PANEL, STANDARD Routine 02/28/2024 10:19 AM EDT Primary hypertension Coronary artery disease involving [place] coronary artery of [place] heart without angina pectoris HM MAMMOGRAPHY Routine 06/13/2023 from Last 3 Months or Most Recently Relevant to Health Maintenance Results * (ABNORMAL) Urinalysis, Complete, with Reflex to Culture (06/17/2025 11:30 AM EDT) Color Urine Dark Yellow [facility] Appearance Urine Clear [facility] PH 5.5 5.0 - 9.0 [facility] Glucose Urine UA Negative Negative mg/dL [facility] Urine Blood Negative Negative [facility] Specific [place] - Urine 1.025 1.005 - 1.025 [facility] Urine Protein Trace Neg-Trace mg/dL [facility] Urine Ketones Trace Negative mg/dL [facility] Nitrite Urine Negative Negative [facility] Leukocyte Esterase Urine Moderate (2+)(A) Negative [facility] RBC Urine 0-2 0 - 2 /HPF [facility] Urine WBC 21-50(A) 0 - 5 /HPF [facility] Urine Squamous Epithelial Cell 6-10 0 - 2 /HPF [facility] Urine Bacteria 1+ None Seen [facility] Hyaline Casts, Urine 0-2 0 - 2 /LPF [facility] 06/17/2025 11:3 0 AM EDT 06/17/2025 1:57 PM EDT Narrative [facility] - 06/17/2025 2:14 PM EDT [id number], Clean Catch us Nicolle Grant MD LAB URINE ORDERABLES Final Re sult [facility] [address] [place] [phone] * CBC auto differential (06/17/2025 11:25 AM EDT) White Blood Count 6.4 4.8 - 10.8 X10*3/uL [facility] Red Blood Count 4.85 4.20 - 5.50 X10*6/uL [facility] Hemoglobin 13.4 12.0 - 16.0 g/dl [facility] Hematocrit 42.5 37.0 - 47.0 % [facility] Mean Corpuscular Volume 87.6 80.0 - 98.0 fL [facility] Mean Corpuscular Hemoglobin 27.6 27.0 - 33.0 pg [facility] Mean Corpuscular HGB Conc 31.5 31.0 - 35.0 g/dl [facility] Red Cell Distribution Width 13.9 11.0 - 16.0 % [facility] Platelet Count 330 160 - 400 X10*3/uL [facility] Mean Platelet Volume 10.1 9.4 - 12.3 fL [facility] Neutrophils Percent Auto 62.0 45 - 73 % [facility] Imm Gran Pct Auto 0.2 0.0 - 0.4 % [facility] Lymphocytes Percent Auto 27.0 20 - 40 % [facility] Monocytes Percent Auto 9.1 2 - 11 % [facility] Eosinophils Percent Auto 0.9 0 - 4 % [facility] Basophils Percent Auto 0.8 0 - 2 % [facility] NRBC Pct Auto 0.0 0.0 - 0.2 /100WBC [facility] Neutrophils Absolute Auto 4.0 2.0 - 8.3 x10*3/uL [facility] Imm Gran Abs Auto 0.01 0.00 - 0.03 X10*3/uL [facility] Lymphocytes Absolute Auto 1.7 1.2 - 4.9 X10*3/uL [facility] Monocytes Absolute Auto 0.6 0.1 - 1.2 X10*3/uL [facility] Eosinophils Absolute Auto 0.1 0.0 - 0.4 X10*3/uL [facility] Basophils Absolute Auto 0.1 0.0 - 0.2 X10*3/uL [facility] NRBC Abs Auto 0.000 0.0 - 0.012 X10*3/uL [facility] Blood Venous blood specimen / Unknown 06/17/2025 11:25 AM EDT 06/17/2025 1:55 PM EDT us Nicolle Grant MD LAB BLOOD ORDERABLES Final Re sult [facility] [address] [place], [place] [phone] * Lipid Panel, Standard (02/28/2024 10:19 AM EDT) Triglycerides 70 <150 mg/dL [facility] Comment:Desirable Triglyceri de: less than 150 mg/dLBorderline High Triglyceride 150-199 mg/dLHigh Triglyceride: 200-499 mg/dLVery High Triglyceride: greater than or equal to 5OO mg/dL Cholesterol 131 <200 mg/dL [facility] Comment:Desirable Cholestero l: less than 200 mg/dLBorderline High Cholesterol: 200-239 mg/dLHigh Cholesterol: greater than 239 mg/dL LDL Cholesterol Calculated 72 <100 mg/dL [facility] Comment:Desirable LDL: less than 100 mg/dLNear Optimal/Above Optimal LDL: 110- 129 mg/dLBorderline High LDL: 130-159 mg/dLHigh LDL: 160-189 mg/dLVery High LDL: greater than or equal to 190 mg/dL HDL Cholesterol 45 >40 mg/dL [facility] Comment:Desirable HDL: great er than 40 mg/dL Note: This HDL assay may give artificially low results in patients with liver disease. Blood Venous blood specimen / Unknown 02/28/2024 10:19 AM EDT 02/28/2024 2:40 PM EDT Nicolle Grant MD LAB BLOOD ORDERABLES Final Re sult [facility] [address] [place] [address] [phone] * Mammography (06/13/2023) Mammogram [id number] Anatomical Region Laterality Modality Other Historical Provider HEALTH MAINTENANCE Final Result from Last 3 Months or Most Recently Relevant to Health Maintenance Insurance [facility] C3 Care Teams [place] Machine Operator Relationship Specialty Start Date End Date Nicolle Grant MD [address] [place] [id number] PCP - General Internal Medicine 04/12/23
[2025-06-17 14:52] LABS: Folate 4.5 ng/mL (> or = 4.0); Vitamin B12 207 pg/mL (200-900)
== END 2025-06-17 11:24 | disposition home or self-care (01) ==
LOC: HO.CHCLDS 11:23
PROVIDERS: Visit Provider Pediatrics
DX: Z12.11 Encounter for screening for malignant neoplasm of colon (principal); R53.1 Weakness
CPT/HCPCS: 36415; 80048; 80076; 81001; 81003; 82306; 82607; 82746; 84443; 85025; 87086